=== PATIENT | male | born 1995 | race Caucasian/White ===

== ENCOUNTER 2017-12-13 20:30 | Emergency (ER) | payer OTHER ==
[~2017-12-13] VITALS: Ht 188 cm; Wt 90.7 kg
[2017-12-13 20:55] VITALS: BP 129/70
== END 2017-12-13 21:28 | disposition home or self-care (01) ==
LOC: ER 20:32
DX: J06.9 Acute upper respiratory infection, unspecified (principal); Z98.890 Other specified postprocedural states
CPT/HCPCS: 99281; A4606; Z7610; Z7502

== ENCOUNTER 2018-04-11 09:05 | Emergency (ER) ==
[~2018-04-11] VITALS: Ht 188 cm; Wt 95.3 kg
[2018-04-11 09:15] VITALS: BP 124/77
[2018-04-11] MEDS ORDERED: DEXAMETHASONE SOD PHOSPHATE 10 MG/ML VIAL ONE (09:27)
[2018-04-11] MEDS ORDERED: IBUPROFEN 400 MG TABLET ONE (09:28)
[2018-04-11] MEDS ORDERED: IBUPROFEN 400 MG TABLET PO ONE (09:30)
[2018-04-11] MEDS ORDERED: DEXAMETHASONE SOD PHOSPHATE 4 MG/ML VIAL IM ONE (09:30)
== END 2018-04-11 10:00 | disposition home or self-care (01) ==
LOC: ER 09:11
DX: B00.2 Herpesviral gingivostomatitis and pharyngotonsillitis (principal); Z98.890 Other specified postprocedural states
CPT/HCPCS: 96372; 99283; J1100; A4606; Z7610

== ENCOUNTER 2019-01-30 19:04 | Emergency (ER) | payer OTHER ==
[~2019-01-30] VITALS: Ht 188 cm; Wt 95.3 kg
--- NOTE | 2019-01-30 19:40 | NUR ---
BIBSELF C/O SORE THROAT AND FEVER X1 DAY. DENIES CP, SOB, ABDOMINAL PAIN. AAOX4. RESPIRATIONS EVEN AND UNLABORED. SKIN INTACT. VITAL SIGNS STABLE. WILL CONTINUE TO MONITOR.
[2019-01-30] MEDS ORDERED: KETOROLAC TROMETHAMINE INJ 30 MG/ML VIAL ONE (19:50)
[2019-01-30] MEDS ORDERED: DEXAMETHASONE SOD PHOSPHATE 10 MG/ML VIAL ONE (19:50)
[2019-01-30] MEDS ORDERED: PENICILLIN G BENZATHINE 2.4 MMU/4 ML ML IM ONE ×2 (19:50→20:00)
--- NOTE | 2019-01-30 19:50 | NUR ---
IV INITIATED RAC 20G. LABS DRAWN FROM SITE. WOOD TANK BUILDER AT BEDSIDE FOR COLLECTION. IV INTACT AND PATENT, PLACED ON SALINE LOCK
[2019-01-30] MEDS ORDERED: DEXAMETHASONE SOD PHOSPHATE 10 MG/ML VIAL IV ONE (20:00)
[2019-01-30] MEDS ORDERED: KETOROLAC TROMETHAMINE INJ 30 MG/ML VIAL IV ONE (20:00)
[2019-01-30] MEDS ORDERED: IV NS 0.9% 1,000 ML BAG IV ONE (20:00)
[2019-01-30 20:19] LABS: MONOTEST NEGATIVE (NEGATIVE)
--- NOTE | 2019-01-30 21:14 | NUR ---
Patient discharged to home in stable condition. Written and verbal after care instructions given. Patient verbalizes understanding of instruction.IV removed. Catheter intact and site benign. Pressure and 4x4 applied to site. No bleeding noted. Pt ambulatory with a steady gait
[2019-01-30 21:15] VITALS: BP 123/71
== END 2019-01-30 21:15 | disposition home or self-care (01) ==
LOC: ER 19:12
DX: J02.9 Acute pharyngitis, unspecified (principal); E86.0 Dehydration; Z98.890 Other specified postprocedural states
CPT/HCPCS: 36415; 86308; 87070; 87880; 96361; 96372; 96374; 96375; 99283; J0558; J1100; J1885; J7030; 86403-TC

== ENCOUNTER 2019-02-11 13:49 | Emergency (ER) | payer MEDICAID, OTHER ==
[~2019-02-11] VITALS: Ht 188 cm; Wt 95.3 kg
[2019-02-11 14:22] VITALS: BP 138/80
== END 2019-02-11 14:42 | disposition home or self-care (01) ==
LOC: ER 13:57
DX: T78.40XA Allergy, unspecified, initial encounter (principal); R09.82 Postnasal drip; J30.2 Other seasonal allergic rhinitis; Z98.890 Other specified postprocedural states; X58.XXXA Exposure to other specified factors, initial encounter
CPT/HCPCS: 86403-TC; 87070-TC

== ENCOUNTER 2021-01-01 14:35 | Emergency (ER) | payer MEDICAID, OTHER ==
[~2021-01-01] VITALS: Ht 188 cm; Wt 95.7 kg
--- NOTE | 2021-01-01 15:00 | NUR ---
THE PATIENT IS [facility]IB FAMILY [employer] FOR C/O FEVER, NAUSEA, VOMITING AND DIARRHEA SINCE LAST NIGHT. DENIES PAIN. IN ROOM AIR AND DENIES SOB. RESPIRATION REGULAR AND UNLABORED. WILL CONTINUE TO MONITOR THE PATIENT.
[2021-01-01] MEDS ORDERED: IV NS 0.9% 1,000 ML BAG IV ONE ×2 (15:30→17:30)
[2021-01-01] MEDS ORDERED: ONDANSETRON HCL/PF 4 MG/2 ML VIAL IVP ONE (15:30)
[2021-01-01 15:43] LABS: BASOPHILS % (AUTO) 0.1 % (0.0-2.0); HEMATOCRIT 47 % (39-51); HEMOGLOBIN 16.5 g/dL (13.5-17.5); LYMPHOCYTES # (AUTO) 0.3 K/uL (0.8-4.8); LYMPHOCYTES % (AUTO) 2.1 % (20.0-44.0); MEAN CORPUSCULAR HGB CONC 35 g/dl (31.0-36.0); MEAN CORPUSCULAR VOLUME 90 fL (80-96); MONOCYTES # (AUTO) 0.3 K/uL (0.1-1.30); MONOCYTES % (AUTO) 2.8 % (2.0-12.0); NEUTROPHILS # (AUTO) 11.8 K/uL (1.8-8.9); PLATELET COUNT (AUTO) 228 K/uL (150-450); RED BLOOD CELL COUNT(AUTO) 5.25 MIL/uL (4.5-6.0); WHITE BLOOD COUNT (AUTO) 12.5 K/uL (4.3-11.0)
[2021-01-01] MEDS ORDERED: ONDANSETRON HCL/PF 4 MG/2 ML VIAL ONE (15:45)
[2021-01-01 16:01] LABS: CALCIUM, SERUM 8.7 mg/dL (8.5-10.1); CREATININE 1.3 mg/dL (0.6-1.3); POTASSIUM 3.9 mmol/L (3.5-5.1)
[2021-01-01 16:06] LABS: BILIRUBIN,DIRECT 0.2 mg/dL (0.0-0.2); BILIRUBIN,TOTAL 0.9 mg/dL (0.2-1.0); TOTAL PROTEIN, SERUM 7.7 g/dL (6.4-8.2)
[2021-01-01] MEDS ORDERED: IOHEXOL-300 100 ML VIAL IV ONE (16:12)
[2021-01-01] MEDS ORDERED: IV NS 0.9% 0 ML IV ONE (16:12)
--- NOTE | 2021-01-01 16:25 | NUR ---
THE PATIENT REFUSED CT. DR CURTIS HONG.
[2021-01-01 16:28] LABS: BILIRUBIN,URINE NEGATIVE (NEGATIVE); COLOR,URINE YELLOW (YELLOW); LEUKOCYTE ESTERASE ,URINE NEGATIVE (NEGATIVE); NITRITE, URINE NEGATIVE (NEGATIVE); PH,URINE 5.5 (5.0-8.0); PROTEIN,URINE NEGATIVE (NEGATIVE); UGLUCOSE NEGATIVE (NEGATIVE); UROBILINOGEN,URINE 0.2 EU/dL (0.2)
[2021-01-01] MEDS ORDERED: ACETAMINOPHEN 325 MG TABLET ONE (17:08)
[2021-01-01] MEDS ORDERED: ACETAMINOPHEN 325 MG TABLET PO ONE (17:30)
[2021-01-01] MEDS ORDERED: ONDA4TAB5 PO (17:53)
--- NOTE | 2021-01-01 18:10 | NUR ---
Patient discharged to home in stable condition. Written and verbal after care instructions given. Patient verbalizes understanding of instruction.
[2021-01-01 18:11] VITALS: BP 121/63
== END 2021-01-01 18:11 | disposition home or self-care (01) ==
LOC: ER 14:35
DX: R11.2 Nausea with vomiting, unspecified (principal); R19.7 Diarrhea, unspecified; R10.84 Generalized abdominal pain; D72.829 Elevated white blood cell count, unspecified; R00.0 Tachycardia, unspecified; Z20.822 Contact with and (suspected) exposure to COVID-19
CPT/HCPCS: 36415; 80048; 80076; 81003; 83605; 83690; 85025; 87426; 96361; 96374; 99283; C9803; J2405; J7030 ×2; J7050; Q9967

== ENCOUNTER 2021-11-15 07:09 | Emergency (ER) | payer MEDICAID ==
[~2021-11-15] VITALS: Ht 188 cm; Wt 99.8 kg
[~2021-11-15 07:09] MED LIST: ONDA4TAB5 PO
[2021-11-15 07:17] VITALS: BP 121/74
[2021-11-15] MEDS ORDERED: IBUPROFEN 600 MG TABLET ONE (08:04)
[2021-11-15] MEDS: IBUPROFEN 600 MG TABLET PO ONE (08:06)
--- NOTE | 2021-11-15 08:07 | NUR ---
MEDICATED ORDERED, DECIDE TO WAIT IN CAR FOR RESULT,CALL AT [phone]
[2021-11-15] MEDS ORDERED: METH4TAB3 PO (09:35)
--- NOTE | 2021-11-15 10:02 | NUR ---
Patient discharged to home in stable condition. Written and verbal after care instructions given. Patient verbalizes understanding of instruction.
== END 2021-11-15 10:02 | disposition home or self-care (01) ==
LOC: ER 07:17
DX: J02.9 Acute pharyngitis, unspecified (principal); Z20.822 Contact with and (suspected) exposure to COVID-19; R50.9 Fever, unspecified
CPT/HCPCS: 87070; 87077; 87426; 87880; 99283; C9803; 86403-TC